=== PATIENT | male | born 1965 | race Asian ===

== ENCOUNTER 2017-01-19 13:12 | Emergency (ER) | payer BC, OTHER ==
--- NOTE | 2017-01-19 14:47 | RAD ---
HISTORY: Left lateral ankle pain COMPARISONS: None VIEWS: 3, Frontal, lateral, and oblique views of the left ankle FINDINGS: BONE DENSITY: Normal. BONES: There is a small bone fragment along the distal fibula. JOINTS: There is no arthropathy. ALIGNMENT: There is no dislocation. SOFT TISSUES: There is soft tissue swelling OTHER FINDINGS: None. IMPRESSION: PROBABLE AVULSION INJURY OF THE DISTAL FIBULA
[2017-01-19 15:12] VITALS: BP 135/75
--- NOTE | 2017-01-19 15:37 | UC ---
Lower Extremity/Ankle HPI - HPI Summary HPI Summary: ONE WEEK OF LEFT ANKLE PAIN, SWELLING. NO KNOWN SERIOUS TRAUMA; DID SLIP A WEEK AGO IN THE BATHTUB, PERHAPS A MILD TWIST TO THE ANKLE THEN. . NO FEVER. NO HISTORY OF GOUT. - History of Current Complaint Chief Complaint: UCLowerExtremity Stated Complaint: ANKLE INJURY Time Seen by Provider: 01/19/17 13:48 Hx Obtained From: Patient Onset/Duration: Sudden Onset, Lasting Days, Still Present Severity Initially: Moderate Severity Currently: Severe Pain Intensity: 8 Pain Scale Used: 0-10 Numeric Aggravating Factor(s): Standing, Ambulation Alleviating Factor(s): Rest, Elevation Able to Bear Weight: Yes - WITH PAIN - Risk Factors Gout Risk Factors: Male - Allergies/Home Medications Allergies/Adverse Reactions: Allergies Allergy/AdvReac Type Severity Reaction Status Date / Time No Known Allergies Allergy Verified 12/07/14 19:05 Home Medications: Home Medications Fenugreek (Trigonella Foenum-G [Fenugreek Blood Sugar Hea] 500 mg PO 01/19/17 [ History] Flaxseed (Linseed) [Flax Seeds] 1 pow PO 01/19/17 [History] PMH/Surg Hx/FS Hx/Imm Hx Previously Healthy: Yes - Surgical History Surgical History: Yes Surgery Procedure, Year, and Place: inguinal hernia as a child. lt index finger surgery - Family History Known Family History: Negative: Other - NO GOUT - Social History Occupation: Employed Full-time Lives: With Family Alcohol Use: Weekly Substance Use Type: None Smoking Status (MU): Former Smoker Review of Systems Constitutional: Negative Skin: Negative Eyes: Negative ENT: Negative Respiratory: Negative Cardiovascular: Negative Gastrointestinal: Negative Genitourinary: Negative Motor: Negative Neurovascular: Negative Musculoskeletal: Arthralgia, Myalgia Neurological: Negative Psychological: Negative All Other Systems Reviewed And Are Negative: Yes Physical Exam Triage Information Reviewed: Yes Appearance: Well-Appearing, Well-Nourished, Pain Distress Vital Signs: Initial Vital Signs Temp 98.1 F 01/19/17 13:19 Pulse 104 01/19/17 13:19 Resp 18 01/19/17 13:19 BP 142/74 01/19/17 13:19 Pulse Ox 98 01/19/17 13:19 Vital Signs Reviewed: Yes Eye Exam: Normal ENT Exam: Normal ENT: Positive: Normal ENT inspection Dental Exam: Normal Neck exam: Normal Neck: Positive: Supple, Nontender Respiratory Exam: Normal Respiratory: Positive: Chest non-tender, Lungs clear, Normal breath sounds, No respiratory distress, No accessory muscle use Cardiovascular Exam: Normal Cardiovascular: Positive: RRR, No Murmur, Pulses Normal, Brisk Capillary Refill Abdominal Exam: Normal Musculoskeletal: Positive: Strength Limited @, ROM Limited @, Edema @ - LEFT LATERAL ANKLE Neurological Exam: Normal Psychological Exam: Normal Skin Exam: Normal Lower Extremity Course/Dx - Differential Dx/Diagnosis Differential Diagnosis/HQI/PQRI: Arthritis, Cellulitis, Dislocation, Fracture ( Closed), Gout, Infection, Septic Arthritis, Sprain, Strain Provider Diagnoses: CLOSED NONDISPLACED AVULSION FRACTURE OF LEFT DISTAL FIBULA Discharge - Discharge Plan Condition: Stable Disposition: HOME Prescriptions: HYDROcodone/ACETAMIN 5-325 MG* [Buhl 5-325 TAB*] 1 tab PO Q8H PRN #15 tab MDD three tabs PRN Reason: Pain Patient Education Materials: Ankle Fracture (ED), Avulsion Fracture (ED) Referrals: Francisco Javier Elizalde MD [Primary Care Provider] - Fuentes Jack MD [Medical Doctor] - Additional Instructions: PHYSICAL THERAPY REFERRAL: You have been prescribed physical therapy. Treatments may include stretching, exercise, application of heat or cold, and other modalities. After an injury, PT can reduce swelling and pain. In recovery, PT is used to restore mobility and strength. Your specific treatment goals are: ___x__ Reduction of Swelling (EGS, US, ice as needed) ___x__ Pain Reduction (EGS, US, ice as needed) ____x_ TENS Pack Fitting and Instruction Wound Hydrotherapy ___x__ Preservation of Mobility ___x__ Jewish of Mobility ___x__ Strength Jewish ___x__ Work or Sports Hardening This instruction sheet also serves as your PHYSICAL THERAPY REFERRAL! Please take it with you to the therapist, so he/she will be aware of your diagnosis and treatment plan. You may see the physical therapist of your choice for these treatments, but may wish to check with your insurance to be sure the provider you select is covered. It's important to see the doctor to whom you have been referred for follow up.
== END 2017-01-19 15:25 | disposition home or self-care (01) ==
LOC: UCEAST 13:12
DX: M25.572 Pain in left ankle and joints of left foot (principal); Z87.891 Personal history of nicotine dependence
CPT/HCPCS: 99213; G0463